=== PATIENT | female | born 1975 | race Hispanic/Latino ===

== ENCOUNTER 2017-10-25 16:13 | Emergency (ER) | payer SELFPAY | END 2017-10-25 17:50 | disposition home or self-care (01) | LOC: ERS 16:13 | DX: J02.9 Acute pharyngitis, unspecified (principal); R03.0 Elevated blood-pressure reading, without diagnosis of hypertension | CPT/HCPCS: 87081; 87430; 99283 ==

== ENCOUNTER 2020-04-15 09:55 | Emergency (ER) | payer OTHER, SELFPAY ==
[2020-04-15 10:35] LABS: #Monocytes 0.3 thou/uL (0.11-0.59); %Basophils 0.2 % (0.0-1.0); %Eosinophils 0.2 % (0.0-10.0); %Lymphocytes 23.4 % (21.0-51.0); %Monocytes 6.4 % (0.0-10.0); %Neutrophils 69.8 % (42.0-75.0); Hemoglobin 13.2 g/dL (12.0-16.0); Mean Corpuscular HGB CONC 34.3 g/dL (32.0-36.0); Mean Corpuscular Hemoglobin 27.9 pg (27.0-31.0); Mean Corpuscular Volume 81.6 fL (78.0-98.0); Mean Platelet Volume 8.7 fL (7.4-10.4); Platelet Count 182 thou/uL (130-400); RBC Distribution Width 12.3 % (11.5-14.5); Red Blood Cell (RBC) Count 4.74 mill/uL (4.20-5.40); White Blood Cell (WBC) Count 4.3 thou/uL (4.8-10.8)
[2020-04-15 10:55] LABS: ALT (SGPT) 38 U/L (8-55); AST (SGOT) 30 U/L (5-34); Albumin 4.3 g/dL (3.5-5.0); Alkaline Phosphatase 94 U/L (40-110); Anion Gap 14 mmol/L (10-20); BUN (Urea Nitrogen) 9 mg/dL (7.0-18.7); Bilirubin, Total 0.4 mg/dL (0.2-1.2); Calc. Creatinine Clearance 0 mL/min (70-130); Calcium 9.3 mg/dL (7.8-10.44); Carbon Dioxide 23 mmol/L (22-29); Chloride 104 mmol/L (98-107); Estimated GFR-MDRD Greater than 90; Globulin 3.4 g/dL (2.4-3.5); Glucose 166 mg/dL (70-105); Lipase 34 U/L (8-78); Potassium 3.8 mmol/L (3.5-5.1); Protein, Total 7.7 g/dL (6.0-8.3); Sodium 137 mmol/L (136-145)
[2020-04-15 11:21] LABS: Bilirubin Negative (Negative); Blood, Urine Negative (Negative); Clarity Clear (Clear); Glucose, Urine (Dipstick) Normal (Negative); Leukocyte Negative Leu/uL (Negative); Nitrite Negative (Negative); Protein, Urine (Dipstick) Negative (Neg-Trace); Urobilinogen Normal mg/dL (Less than 2)
[2020-04-15 11:53] LABS: BHCG - Serum Negative (NEGATIVE); Pregs Control Background? CLEAR/WHITE (CLR/WHITE); Pregs Control Bar Appear? YES (CONTROL BAR)
--- NOTE | 2020-04-15 12:19 | RAD ---
Exam: Chest one view HISTORY:Cough. Nausea and vomiting. Syncope. Comparison: 05/07/2015 FINDINGS: Cardiac silhouette: Normal Aorta: Unremarkable Pulmonary vessels: Normal Costophrenic angles: Clear LUNGS: Patchy interstitial and alveolar opacities in the right lung and shift opacities in the left l acrina Pneumothorax: None Osseous abnormalities: None IMPRESSION: Bilateral lung parenchymal opacities, right greater than left. Continued surveillance is recommended.
[2020-04-15] MEDS ORDERED: Ondansetron PF 4 MG/2 ML Vial ONE (12:50)
[2020-04-16 12:38] LABS: SARS-CoV-2 MS2 Positive; SARS-CoV-2 N Gene Positive; SARS-CoV-2 S Gene Positive; SARS-CoV-2 orf1ab Positive
== END 2020-04-15 13:30 | disposition home or self-care (01) ==
LOC: ERS 09:55
DX: U07.1 COVID-19 (principal); R55 Syncope and collapse; J06.9 Acute upper respiratory infection, unspecified
CPT/HCPCS: 71045; 80053; 81003; 83690; 84484; 84703; 85025; 85379; 87086; 87635; 93005; 94760; 96374; J2405; U0003